=== PATIENT | female | born 1980 | race Hispanic/Latino ===

== ENCOUNTER 2017-06-07 00:45 | Emergency (ER) | payer OTHER ==
[2017-06-07 01:02] VITALS: BMI 19.8
[2017-06-07 01:05] VITALS: BP 123/94; PULSE 60; RESP 18; TEMP 97.6; O2SAT 100
--- NOTE | 2017-06-07 01:31 | ED PDOC ---
HPI: Headache Time Seen by Provider: 06/07/17 01:12 Chief Complaint (Nursing): Dizziness/Lightheaded Chief Complaint (Provider): Dizziness/Lightheaded History Per: Patient History/Exam Limitations: no limitations Onset/Duration Of Symptoms: Mins Current Symptoms Are (Timing): Still Present Additional Complaint(s): Abi Knapp is a 36 year old female with a history of Lupus for which she is currently in remission that presents to the ED with a chief complaint of dizziness and blurry vision that occurred at the patient's home shortly prior to arrival in ED. Patient reports that all of her symptoms have resolved with the exception of a mild headache. She states that she "has not been feeling well this week," and that she did Crossfit tonight, which she thinks may have been a possible cause of her symptoms. She denies any fever and states that she is not on any medication. Past Medical History Reviewed: Historical Data, Nursing Documentation, Vital Signs Vital Signs: Last Vital Signs Temp 97.6 F 06/07/17 01:02 Pulse 60 06/07/17 01:02 Resp 18 06/07/17 01:02 BP 123/94 H 06/07/17 01:02 Pulse Ox 100 06/07/17 01:02 - Medical History Other PMH: Lupus (currently in remission) - Family History Family History: States: Unknown Family Hx - Social History Current smoker - smoking cessation education provided: No Alcohol: None Drugs: Denies - Allergies Allergies/Adverse Reactions: Allergies Allergy/AdvReac Type Severity Reaction Status Date / Time No Known Allergies Allergy Verified 06/07/17 01:02 Review of Systems Constitutional: Negative for: Fever Eyes: Positive for: Vision Change (blurry vision (now resolved)) Neurological: Positive for: Headache (Mild), Dizziness ((now resolved)) Physical Exam - Reviewed Nursing Documentation Reviewed: Yes Vital Signs Reviewed: Yes - Physical Exam Appears: Positive for: Non-toxic, No Acute Distress Head Exam: Positive for: ATRAUMATIC, NORMOCEPHALIC Skin: Positive for: Normal Color, Warm Eye Exam: Positive for: Normal appearance, EOMI, PERRL Cardiovascular/Chest: Positive for: Regular Rate, Rhythm. Negative for: Murmur Respiratory: Positive for: Normal Breath Sounds. Negative for: Wheezing Gastrointestinal/Abdominal: Positive for: Normal Exam, Soft. Negative for: Tenderness Extremity: Positive for: Normal ROM. Negative for: Pedal Edema, Swelling Neurologic/Psych: Positive for: Alert, ship's captain II-XII, Oriented, Cerebellar Tests ( Normal). Negative for: Motor/Sensory Deficits, Aphasia, Facial Droop - ECG O2 Sat by Pulse Oximetry: 100 (RA) Pulse Ox Interpretation: Normal Medical Decision Making Medical Decision Making: Impression: Resolved Dizziness, Mild Headache Plan: * Patient eloped from ED, left without treatment complete. Scribe Attestation: Documented by Sofia Shields, acting as a scribe for Dayton Sullivan MD. Provider Scribe Attestation: All medical record entries made by the Scribe were at my direction and personally dictated by me. I have reviewed the chart and agree that the record accurately reflects my personal performance of the history, physical exam, medical decision making, and the department course for this patient. I have also personally directed, reviewed, and agree with the discharge instructions and disposition. Disposition - Clinical Impression Clinical Impression: Dizziness, Mild headache - Patient ED Disposition Is Patient to be Admitted: No - Disposition Disposition: Left W/O Treatment Disposition Time: 01:35 Condition: FAIR
== END 2017-06-07 01:40 | disposition left against medical advice (07) ==
LOC: H.ER 00:45
DX: R42 Dizziness and giddiness (principal); R51 Headache; M32.9 Systemic lupus erythematosus, unspecified